=== PATIENT | male | born 1970 | race Caucasian/White ===

== ENCOUNTER → 2018-05-27 | Outpatient (CLI) | payer OTHER ==
[~2018-05-27] MED LIST: ASPI81EC PO; CETI5 PO; FISH1000 PO; LISI10 PO; LISI20 PO; METO50ER PO; Metoprolol Succ25 MG PO; OMEP10ER PO; OXYACE5T PO; PROM25 PO; SIMV10 PO
== END | disposition home or self-care (01) ==
LOC: LAB SHORT 10:10 → PLD 10:10
DX: D22.61 Melanocytic nevi of right upper limb, including shoulder (principal); D22.72 Melanocytic nevi of left lower limb, including hip
CPT/HCPCS: 88305

== ENCOUNTER → 2019-07-28 | Outpatient (CLI) | payer OTHER | END | disposition home or self-care (01) | LOC: PLD 11:46 → LAB SHORT 11:46 | DX: D22.5 Melanocytic nevi of trunk (principal) | CPT/HCPCS: 88305 ==